=== PATIENT | male | born 1990 | race Caucasian/White ===

== ENCOUNTER → 2017-11-14 | Outpatient (CLI) | payer SELFPAY ==
--- NOTE | 2017-11-14 15:19 | PCVCIMAG ---
APPROVED REPORT Study performed: 11/14/2017 10:43:01 EXAM: Comprehensive 2D, Doppler, and color-flow Echocardiogram Patient Location: Echo lab Status: routine BSA: 2.12 HR: 42 bpmBP: 104/64 mmHg Rhythm: Bradycardia Other Information Study Quality: Good Indications Murmur 2D Dimensions LVEF(%): 57.56 (>50%) IVSd: 10.55 (7-11mm)LVOT Diam: 23.00 (18-24mm) LVDd: 53.90 mm PWd: 10.85 (7-11mm)Ascending Ao: 28.32 (22-36mm) LVDs: 37.42 (25-40mm) Left Atrium: 37.72 (27-40mm) Aortic Root: 31.30 mm LV Single Plane 4CH: 58.64 % LV Single Plane 2CH: 59.65 %Nicholson's LVEF: 59.15 % Biplane EF: 59.2 % Volumes Left Atrial Volume (Systole) Single Plane 4CH: 41.06 mLSingle Plane 2CH: 65.86 mL LA ESV Index: 28.00 mL/m2 Aortic Valve AoV Peak Mehul.: 1.27 m/s AO Peak Gr.: 6.74 mmHgLVOT Max P.09 mmHg LVOT Max V: 1.01 m/s NE Vmax: 3.39 cm2 Mitral Valve E/A Ratio: 2.7 MV Decel. Time: 319.13 ms MV E Max Mehul.: 0.82 m/s MV A Mehul.: 0.30 m/s MV PHT: 92.55 ms IVRT: 69.20 ms TDI E/Lateral E': 4.56E/Medial E': 6.83 Medial E' Mehul.: 0.12 m/s Lateral E' Mehul.: 0.18 m/s Pulmonary Valve PV Peak Mehul.: 1.10 m/sPV Peak Gr.: 4.81 mmHg NC End Vmax: 0.75 m/s Pulmonary Vein P Vein S: 0.39 m/sP Vein A: 0.22 m/s P Vein D: 0.52 m/sP Vein A Dur.: 152.2 msec P Vein S/D Ratio: 0.75 Tricuspid Valve TR Peak Mehul.: 2.13 m/sRAP Estimate: 7.00 mmHg TR Peak Gr.: 18.09 mmHg PA Pressure: 25.00 mmHg Left Ventricle Left ventricle is at the upper limits of normal. There is normal LV segmental wall motion. Borderline concentric left ventricular hypertrophy. Left ventricular systolic function is normal. The left ventricular ejection fraction is within the normal range. LVEF is 60%. The left ventricular diastolic function is normal. Right Ventricle The right ventricle is normal size. The right ventricular systolic function is normal. Atria The left atrium size is normal. Small PFO/ASD is noted. Right atrium is at the upper limits of normal. Aortic Valve The aortic valve is normal in structure. No aortic regurgitation is present. There is no aortic valvular stenosis. Mitral Valve The mitral valve is normal in structure. Trace to mild mitral regurgitation. No evidence of mitral valve stenosis. Tricuspid Valve The tricuspid valve is normal in structure. Trace tricuspid regurgitation. Pulmonary artery pressure is 25 mmHg. Pulmonic Valve The pulmonary valve is normal in structure. Trace pulmonic regurgitation. Great Vessels The aortic root is normal in size. IVC is normal in size and collapses >50% with inspiration. Pericardium There is no pericardial effusion. <Conclusion> Left ventricle is at the upper limits of normal. Borderline concentric left ventricular hypertrophy. LVEF is 60%. The left ventricular diastolic function is normal. The right ventricle is normal size. The left atrium size is normal. The aortic valve is normal in structure. There is no aortic valvular stenosis. Trace to mild mitral regurgitation. Trace tricuspid regurgitation. Pulmonary artery pressure is 25 mmHg. The aortic root is normal in size. There is no pericardial effusion.
== END | disposition home or self-care (01) ==
LOC: PCVCIMAG 16:14
PROVIDERS: ATTEND Family Medicine
DX: I51.7 Cardiomegaly (principal); R01.1 Cardiac murmur, unspecified
CPT/HCPCS: 93306